=== PATIENT | female | born 1990 | race Caucasian/White ===

== ENCOUNTER 2021-06-04 06:05 | Day surgery (SDC) | payer OTHER ==
[2021-06-04] MEDS ORDERED: Lactated Ringers 1,000 ML IV SCH (06:30)
[2021-06-04] MEDS ORDERED: VIBRAMYCIN 100 MG*** 100 MG in Dextrose 5%/Water IV Soln. 100ML PLUS BAG 100 ML IV ONE (07:30)
[2021-06-04] MEDS ORDERED: DIPRIVAN 200 MG/20 ML IV ONE (07:44)
[2021-06-04] MEDS ORDERED: Versed 2 MG/2 ML Injection ONE (07:44)
[2021-06-04] MEDS ORDERED: ATROPINE SULFATE 1MG ONE (07:48)
[2021-06-04] MEDS ORDERED: Quelicin Fliptop 200 MG/10 ML ONE (07:48)
[2021-06-04] MEDS ORDERED: SUBLIMAZE 100 MCG/2 ML ONE ×2 (08:20→08:51)
[2021-06-04 09:41] VITALS: BP 150/95; PULSE 81; O2SAT 97
--- NOTE | 2021-06-05 07:43 | OP ---
SURGERY DATE/TIME: 06/04/2021 0807 PREOPERATIVE DIAGNOSIS: Menorrhagia, declines medical management. POSTOPERATIVE DIAGNOSIS: Menorrhagia, declines medical management. PROCEDURE: Hysteroscopy, D&C with NovaSure ablation. SURGEON: Noel Sigala D.O. ASSOCIATE DIRECTOR OF SALES: Cristhian Alcantara surgical instrument repair specialist. ANESTHESIA: General. ESTIMATED BLOOD LOSS: Minimal. COMPLICATIONS: None. INDICATIONS: The risks, benefits, indications and alternatives of the procedure were reviewed with the patient prior to the procedure. The patient understood the risk of infection, bleeding, bowel injury, bladder injury, ureteral injury, uterine perforation, pelvic infection, thromboembolic disorder associated with this surgery and desires to have this surgery as a possible means to alleviate her current medical condition. DESCRIPTION OF PROCEDURE AND FINDINGS: At this point the patient is taken to the operating room, given general sedation, placed in dorsal lithotomy position, prepped and draped in the usual sterile fashion. A weighted speculum is then placed in the patient's vagina and the anterior lip of the cervix is grasped with a single tooth tenaculum. Endocervical dilators were advanced through the endocervical canal as a means to dilate the cervix and the uterus was sounded to approximately 8 to 9 cm. From this point, a 5 mm hysteroscope was then placed in through the endocervical canal where visualization of endometrial cavity appeared to be within normal limits with no gross abnormalities. From this point the hysteroscope was then removed and the curette was then placed into the fundus of the uterus and curettage is performed in all quadrants of the uterus retrieving a moderate amount of endometrial tissue. From this point hemostasis obtained. At this point the NovaSure instrument was then placed into the fundus of the uterus retracted approximately 1 cm and was a length 6.0 cm and the width of 4.5 cm. The machine was turned on for an ablative time of 49 seconds. At the completion of the ablation the instrument was disengaged from the uterine cavity, removed as well as all of the instruments were removed from the patient's vaginal region as well. The patient was then taken out of dorsal lithotomy position, was taken out of anesthesia and was then taken to the recovery room in stable condition. All instruments and laps were accounted for x2.
== END 2021-06-04 09:50 | disposition home or self-care (01) ==
LOC: SDC 06:05
PROVIDERS: ATTEND Obstetrics & Gynecology
DX: N92.0 Excessive and frequent menstruation with regular cycle (principal)
CPT/HCPCS: 84703; J0330; J0461; J2250; J2704; J3010

== ENCOUNTER 2022-11-11 07:48 | Observation (INO) | payer OTHER ==
[~2022-11-11 07:48] MED LIST: Transderm Scop 1.5MG Patch TOP PRN; Versed 2 MG/2 ML Injection IV PRN
[2022-11-11] MEDS ORDERED: Lactated Ringers 1,000 ML IV SCH (08:00)
[2022-11-11] MEDS ORDERED: CLINDAMYCIN-D5W 900 MG/50 ML*** 900 MG/50 ML BAG IV SCH (08:00)
[2022-11-11 08:16] LABS: Hematocrit 44.2 % (35-47); Hemoglobin 14.1 g/dL (12.0-16.0); Mean Cell Volume 91.1 fL (78-100); Mean Corpuscular Hemoglobin 29.1 pg (26-32); Mean Corpuscular Hgb Concent. 31.9 g/dL (32-36); Platelet Count 230 x10^3/uL (150-450); Red Blood Count 4.85 x10^6/uL (4.1-5.4); Red Cell Distribution Width 13.5 % (11.5-14.0); White Blood Count 6.7 x10^3/uL (4.0-10.5)
[2022-11-11 08:29] LABS: ALBUMIN 3.8 g/dL (3.5-5.0); ALKALINE PHOSPHATASE 71 U/L (38-126); ANION GAP 10.6 MEQ/L (5-15); BLOOD UREA NITROGEN 11 mg/dL (7-17); CHLORIDE 105 mmol/L (98-107); Calcium 8.4 mg/dL (8.4-10.2); Carbon Dioxide 26 mmol/L (22-30); Creatinine 1 0.71 mg/dL (0.52-1.04); EST GLOMERULAR FILTRATION RATE > 60.0 ML/MIN; Glucose 98 mg/dL (74-106); Potassium 3.7 mmol/L (3.5-5.1); SGOT/AST 28 U/L (14-36); SGPT/ALT 26 U/L (0-35); SODIUM 138 mmol/L (137-145)
[2022-11-11] MEDS ORDERED: Astramorph-Pf 5 MG/10 ML ONE (08:31)
[2022-11-11] MEDS ORDERED: SUBLIMAZE 100 MCG/2 ML ONE (08:32)
[2022-11-11] MEDS ORDERED: Zemuron 100 MG/10 ML ONE (08:32)
[2022-11-11] MEDS ORDERED: DIPRIVAN 200 MG/20 ML IV ONE (08:32)
[2022-11-11 08:52] LABS: INFLUENZA A NEGATIVE (NEGATIVE); INFLUENZA B NEGATIVE (NEGATIVE); RESPIRATORY SYNCTIAL VIRUS NEGATIVE (Negative); SARS-CoV-2 Xpert Express NEGATIVE (NEGATIVE)
[2022-11-11 09:07] LABS: ABO TYPING O; Antibody Screen NEGATIVE (NEGATIVE); RH TYPING NEGATIVE
[2022-11-11] MEDS ORDERED: Lactated Ringers 1,000 ML IV ONE (09:27)
[2022-11-11] MEDS ORDERED: BRIDION 200MG/2ML IV ONE (09:44)
[2022-11-11] MEDS ORDERED: Zofran 4 MG/2 ML VIAL ONE (09:44)
[2022-11-11] MEDS ORDERED: Marcaine 0.5%/Epinephrine 10 ML ONE (09:45)
[2022-11-11] MEDS ORDERED: Decadron 4 MG INJ ONE (09:46)
[2022-11-11] MEDS ORDERED: TORAdol 30 mg Injection ONE (10:05)
[2022-11-11 10:36] LABS: Bacteria RARE /HPF (NEGATIVE); Mucus MODERATE /HPF (NEGATIVE)
[2022-11-11 10:37] LABS: Appearance CLEAR (CLEAR); Bilirubin NEGATIVE (NEGATIVE); Dipstick done @ ? MAIN LAB; Glucose NEGATIVE (NEGATIVE); Ketones NEGATIVE (NEGATIVE); Nitrite NEGATIVE (NEGATIVE); Protein,Urine Dip NEGATIVE (Negative); RBC NEGATIVE Ery/ul (0-5); Specific Gravity >=1.030 (1.005-1.025); Urobilinogen 0.2 mg/dL (0-1)
[2022-11-11] MEDS ORDERED: Zofran 4 MG/2 ML VIAL IV PRN ×2 (11:28→11:45)
[2022-11-11] MEDS ORDERED: TORAdol 30 mg Injection IV PRN (11:31)
[2022-11-11] MEDS ORDERED: clonazePAM PO PRN (11:39)
[2022-11-11] MEDS ORDERED: Sodium Chloride 0.9% 10 ML FLUSH Syringe IJ PRN (11:45)
[2022-11-11] MEDS ORDERED: CLARITIN 10 MG PO PRN (11:45)
[2022-11-11] MEDS ORDERED: Narcan 0.4 MG/ML IV PRN (11:45)
[2022-11-11] MEDS ORDERED: DEMEROL 50 MG IV PRN (11:45)
[2022-11-11] MEDS ORDERED: BENADRYL 50 MG/ML IV PRN (11:45)
[2022-11-11] MEDS ORDERED: Nubain 10 MG/ML IV PRN (11:45)
[2022-11-11] MEDS: MORPHINE SULFATE 2 MG INJ IV PRN ×2 (12:14→14:08)
[2022-11-11] MEDS: Docusate Sodium 100 MG PO SCH ×2 (12:17→23:14)
[2022-11-11] MEDS: Effexor XR 75 MG PO SCH (12:17)
[2022-11-11] MEDS: Lactated Ringers 1,000 ML IV SCH ×2 (12:19→23:14)
[2022-11-11] MEDS: PERCOCET TABLET 5/325MG PO PRN ×3 (12:43→23:15)
[2022-11-11] MEDS: CLINDAMYCIN-D5W 900 MG/50 ML*** 900 MG/50 ML BAG IV SCH ×2 (14:07→23:14)
[2022-11-11] MEDS: Reglan 10 MG/2 ML IV SCH ×2 (14:07→23:15)
[2022-11-11] MEDS: Mylicon 80MG PO SCH ×2 (14:07→23:15)
[2022-11-11 18:30] LABS: Hematocrit 44.7 % (35-47); Hemoglobin 14.3 g/dL (12.0-16.0); Mean Cell Volume 90.7 fL (78-100); Platelet Count 239 x10^3/uL (150-450); Red Blood Count 4.93 x10^6/uL (4.1-5.4); Red Cell Distribution Width 13.3 % (11.5-14.0); White Blood Count 17.5 x10^3/uL (4.0-10.5)
[2022-11-12 04:57] VITALS: O2SAT 97
[2022-11-12 05:34] LABS: Hematocrit 43.4 % (35-47); Hemoglobin 13.7 g/dL (12.0-16.0); Mean Cell Volume 93.5 fL (78-100); Mean Corpuscular Hemoglobin 29.5 pg (26-32); Mean Corpuscular Hgb Concent. 31.6 g/dL (32-36); Mean Platelet Volume 10.6 fL (7.5-11.0); Platelet Count 217 x10^3/uL (150-450); Red Blood Count 4.64 x10^6/uL (4.1-5.4)
[2022-11-12] MEDS: Reglan 10 MG/2 ML IV SCH (05:55)
[2022-11-12] MEDS: PERCOCET TABLET 5/325MG PO PRN (05:56)
[2022-11-12] MEDS: Mylicon 80MG PO SCH (05:56)
[2022-11-12] MEDS: Lactated Ringers 1,000 ML IV SCH (06:02)
[2022-11-12 06:45] LABS: ALBUMIN 3.4 g/dL (3.5-5.0); ALKALINE PHOSPHATASE 68 U/L (38-126); ANION GAP 6.7 MEQ/L (5-15); BLOOD UREA NITROGEN 9 mg/dL (7-17); CHLORIDE 108 mmol/L (98-107); Calcium 8.8 mg/dL (8.4-10.2); Carbon Dioxide 26 mmol/L (22-30); Creatinine 1 0.55 mg/dL (0.52-1.04); EST GLOMERULAR FILTRATION RATE > 60.0 ML/MIN; Glucose 121 mg/dL (74-106); Potassium 4.1 mmol/L (3.5-5.1); SGOT/AST 44 U/L (14-36); SGPT/ALT 32 U/L (0-35); SODIUM 137 mmol/L (137-145); Total Protein 6.5 g/dL (6.3-8.2)
[2022-11-12 07:38] VITALS: BP 117/67; PULSE 65
--- NOTE | 2022-11-12 07:59 | PCM.NOTE ---
Date and Time: 11/12/22 0756 Subjective Assessment: pod 1 pt resting in bed and doing well. ambulating and tolerating diet. vss afebrile abd; soft incision with dressing intact with minimal soiling ext; no clubbing cyanosis or edema hgb; 13.7 a/p sp laparotomy supracervical hysterectomy pod 1 stable for discharge today will send home on cipro bid 5 days will send home on weekly diflucan for 4 wks for skin candidiasis OBJECTIVE DATA Vital Signs: Vital Signs - 24 hr Temp Pulse Resp BP Pulse Ox 11/12/22 07:37 97.5 F 65 16 117/67 97 11/12/22 04:00 97.3 F 60 16 136/68 97 11/11/22 23:48 97.0 F 57 L 18 111/61 96 11/11/22 20:00 97 F 68 18 108/63 96 11/11/22 19:08 97 11/11/22 16:00 97.8 F 64 16 116/65 92 L 11/11/22 12:45 97.9 F 74 16 143/98 94 L 11/11/22 12:00 97.9 F 74 16 143/98 94 L 11/11/22 11:35 96 11/11/22 11:30 97.6 F 70 16 116/74 91 L 11/11/22 11:15 97.2 F 63 16 131/82 94 L 11/11/22 08:25 98 F 70 18 122/86 96 11/11/22 08:07 98 F 70 18 122/86 96 Pain Assessment - Last Documented Pain Intensity 2 Pain Scale Used 0-10 Pain Scale Intake and Output: Intake & Output 11/09/22 11/10/22 11/11/22 11/12/22 11:59 11:59 11:59 11:59 Intake Total 1451 Output Total 2200 Balance -749 Weight 116 kg 116 kg Lab Results: Lab Results-Last 24 Hours 11/11/22 11/11/22 11/11/22 Range/Units 08:04 08:08 08:08 WBC 6.7 (4.0-10.5) x10^3/uL RBC 4.85 (4.1-5.4) x10^6/uL Hgb 14.1 (12.0-16.0) g/dL Hct 44.2 (35-47) % MCV 91.1 (78-100) fL MCH 29.1 (26-32) pg MCHC 31.9 L (32-36) g/dL RDW 13.5 (11.5-14.0) % Plt Count 230 (150-450) x10^3/uL MPV 10.0 (7.5-11.0) fL Sodium 138 (137-145) mmol/L Potassium 3.7 (3.5-5.1) mmol/L Chloride 105 (98-107) mmol/L Carbon Dioxide 26 (22-30) mmol/L Anion Gap 10.6 (5-15) MEQ/L BUN 11 (7-17) mg/dL Creatinine 0.71 (0.52-1.04) mg/dL Estimated GFR > 60.0 ML/MIN Glucose 98 (74-106) mg/dL Calcium 8.4 (8.4-10.2) mg/dL Total Bilirubin 0.50 (0.2-1.3) mg/dL AST 28 (14-36) U/L ALT 26 (0-35) U/L Alkaline Phosphatase 71 (38-126) U/L Serum Total Protein 7.0 (6.3-8.2) g/dL Albumin 3.8 (3.5-5.0) g/dL Urinalys Dipstick Clnc Urine Color (YELLOW) Urine Appearance (CLEAR) Urine pH (5-6) Ur Specific Almo (1.005-1.025) POC Urine Protein Conf (Negative) Urine Ketones (NEGATIVE) Urine Nitrite (NEGATIVE) Urine Bilirubin (NEGATIVE) Urine Urobilinogen (0-1) mg/dL Urine Leukocytes (NEGATIVE) Urine WBC (Auto) (0-5) /HPF Urine RBC (Auto) (0-2) /HPF U Epithel Cells (Auto) (FEW) /HPF Urine Bacteria (Auto) (NEGATIVE) /HPF Urine RBC (0-5) Bhanu/ul Urine Mucus (Auto) (NEGATIVE) /HPF Urine Glucose (NEGATIVE) mg/dL Urine HCG, Qual NEGATIVE (Negative) Influenza Type A Ag (NEGATIVE) Influenza Type B Ag (NEGATIVE) RSV (PCR) (Negative) SARS-CoV-2 (PCR) (NEGATIVE) ABO Group Rh Factor Antibody Screen (NEGATIVE) 11/11/22 11/11/22 11/11/22 Range/Units 08:08 08:08 08:59 WBC (4.0-10.5) x10^3/uL RBC (4.1-5.4) x10^6/uL Hgb (12.0-16.0) g/dL Hct (35-47) % MCV (78-100) fL MCH (26-32) pg MCHC (32-36) g/dL RDW (11.5-14.0) % Plt Count (150-450) x10^3/uL MPV (7.5-11.0) fL Sodium (137-145) mmol/L Potassium (3.5-5.1) mmol/L Chloride (98-107) mmol/L Carbon Dioxide (22-30) mmol/L Anion Gap (5-15) MEQ/L BUN (7-17) mg/dL Creatinine (0.52-1.04) mg/dL Estimated GFR ML/MIN Glucose (74-106) mg/dL Calcium (8.4-10.2) mg/dL Total Bilirubin (0.2-1.3) mg/dL AST (14-36) U/L ALT (0-35) U/L Alkaline Phosphatase (38-126) U/L Serum Total Protein (6.3-8.2) g/dL Albumin (3.5-5.0) g/dL Urinalys Dipstick Clnc MAIN LAB Urine Color YELLOW (YELLOW) Urine Appearance CLEAR (CLEAR) Urine pH 6.0 (5-6) Ur Specific Almo >=1.030 A (1.005-1.025) POC Urine Protein Conf NEGATIVE (Negative) Urine Ketones NEGATIVE (NEGATIVE) Urine Nitrite NEGATIVE (NEGATIVE) Urine Bilirubin NEGATIVE (NEGATIVE) Urine Urobilinogen 0.2 (0-1) mg/dL Urine Leukocytes NEGATIVE (NEGATIVE) Urine WBC (Auto) NONE (0-5) /HPF Urine RBC (Auto) NONE (0-2) /HPF U Epithel Cells (Auto) NONE (FEW) /HPF Urine Bacteria (Auto) RARE (NEGATIVE) /HPF Urine RBC NEGATIVE (0-5) Bhanu/ul Urine Mucus (Auto) MODERATE A (NEGATIVE) /HPF Urine Glucose NEGATIVE (NEGATIVE) mg/dL Urine HCG, Qual (Negative) Influenza Type A Ag NEGATIVE (NEGATIVE) Influenza Type B Ag NEGATIVE (NEGATIVE) RSV (PCR) NEGATIVE (Negative) SARS-CoV-2 (PCR) NEGATIVE (NEGATIVE) ABO Group O Rh Factor NEGATIVE Antibody Screen NEGATIVE (NEGATIVE) 11/11/22 11/12/22 11/12/22 Range/Units 18:29 05:22 05:22 WBC 17.5 H 18.0 H (4.0-10.5) x10^3/uL RBC 4.93 4.64 (4.1-5.4) x10^6/uL Hgb 14.3 13.7 (12.0-16.0) g/dL Hct 44.7 43.4 (35-47) % MCV 90.7 93.5 (78-100) fL MCH 29.0 29.5 (26-32) pg MCHC 32.0 31.6 L (32-36) g/dL RDW 13.3 14.0 (11.5-14.0) % Plt Count 239 217 (150-450) x10^3/uL MPV 10.0 10.6 (7.5-11.0) fL Sodium 137 (137-145) mmol/L Potassium 4.1 (3.5-5.1) mmol/L Chloride 108 H (98-107) mmol/L Carbon Dioxide 26 (22-30) mmol/L Anion Gap 6.7 (5-15) MEQ/L BUN 9 (7-17) mg/dL Creatinine 0.55 (0.52-1.04) mg/dL Estimated GFR > 60.0 ML/MIN Glucose 121 H (74-106) mg/dL Calcium 8.8 (8.4-10.2) mg/dL Total Bilirubin 0.30 (0.2-1.3) mg/dL AST 44 H (14-36) U/L ALT 32 (0-35) U/L Alkaline Phosphatase 68 (38-126) U/L Serum Total Protein 6.5 (6.3-8.2) g/dL Albumin 3.4 L (3.5-5.0) g/dL Urinalys Dipstick Clnc Urine Color (YELLOW) Urine Appearance (CLEAR) Urine pH (5-6) Ur Specific Almo (1.005-1.025) POC Urine Protein Conf (Negative) Urine Ketones (NEGATIVE) Urine Nitrite (NEGATIVE) Urine Bilirubin (NEGATIVE) Urine Urobilinogen (0-1) mg/dL Urine Leukocytes (NEGATIVE) Urine WBC (Auto) (0-5) /HPF Urine RBC (Auto) (0-2) /HPF U Epithel Cells (Auto) (FEW) /HPF Urine Bacteria (Auto) (NEGATIVE) /HPF Urine RBC (0-5) Bhanu/ul Urine Mucus (Auto) (NEGATIVE) /HPF Urine Glucose (NEGATIVE) mg/dL Urine HCG, Qual (Negative) Influenza Type A Ag (NEGATIVE) Influenza Type B Ag (NEGATIVE) RSV (PCR) (Negative) SARS-CoV-2 (PCR) (NEGATIVE) ABO Group Rh Factor Antibody Screen (NEGATIVE) Assessment/Plan (1) Vulvar candidiasis Current Visit: Yes Status: Acute Code(s): B37.31 - ACUTE CANDIDIASIS OF VULVA AND VAGINA (2) S/P abdominal supracervical subtotal hysterectomy Current Visit: Yes Status: Acute Code(s): Z90.711 - ACQUIRED ABSENCE OF UTERUS WITH REMAINING CERVICAL STUMP
--- NOTE | 2022-11-12 08:04 | PCM.DS ---
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 during postop period did well able to ambulate and tolerate diet. pt noted prior to surgery having rash from vulva extending to upper thigh bilaterally. pt will be given weekly diflucan for 4 wks and cipro bid 5 days as well as norco for pain management. all questions answered to her satisfaction and at this time stable for discharge. stable hgb at 13.7. advised to fu in office in 1 wk - Vitals & Intake/Output Vital Signs: Vital Signs Temperature 97.5 F 11/12/22 07:37 Pulse Rate 65 11/12/22 07:37 Respiratory Rate 16 11/12/22 07:37 Blood Pressure 117/67 11/12/22 07:37 O2 Sat by Pulse Oximetry 97 11/12/22 07:37 Intake & Output: Intake & Output 11/09/22 11/10/22 11/11/22 11/12/22 11:59 11:59 11:59 11:59 Intake Total 1451 Output Total 2200 Balance -749 Weight 116 kg 116 kg - Lab Result Diagrams: 11/12/22 05:22 11/12/22 05:22 Lab Results-Last 24 Hrs: Lab Results-Last 24 Hours 11/11/22 11/11/22 11/11/22 Range/Units 08:04 08:08 08:08 WBC 6.7 (4.0-10.5) x10^3/uL RBC 4.85 (4.1-5.4) x10^6/uL Hgb 14.1 (12.0-16.0) g/dL Hct 44.2 (35-47) % MCV 91.1 (78-100) fL MCH 29.1 (26-32) pg MCHC 31.9 L (32-36) g/dL RDW 13.5 (11.5-14.0) % Plt Count 230 (150-450) x10^3/uL MPV 10.0 (7.5-11.0) fL Sodium 138 (137-145) mmol/L Potassium 3.7 (3.5-5.1) mmol/L Chloride 105 (98-107) mmol/L Carbon Dioxide 26 (22-30) mmol/L Anion Gap 10.6 (5-15) MEQ/L BUN 11 (7-17) mg/dL Creatinine 0.71 (0.52-1.04) mg/dL Estimated GFR > 60.0 ML/MIN Glucose 98 (74-106) mg/dL Calcium 8.4 (8.4-10.2) mg/dL Total Bilirubin 0.50 (0.2-1.3) mg/dL AST 28 (14-36) U/L ALT 26 (0-35) U/L Alkaline Phosphatase 71 (38-126) U/L Serum Total Protein 7.0 (6.3-8.2) g/dL Albumin 3.8 (3.5-5.0) g/dL Urinalys Dipstick Clnc Urine Color (YELLOW) Urine Appearance (CLEAR) Urine pH (5-6) Ur Specific Caroline (1.005-1.025) POC Urine Protein Conf (Negative) Urine Ketones (NEGATIVE) Urine Nitrite (NEGATIVE) Urine Bilirubin (NEGATIVE) Urine Urobilinogen (0-1) mg/dL Urine Leukocytes (NEGATIVE) Urine WBC (Auto) (0-5) /HPF Urine RBC (Auto) (0-2) /HPF U Epithel Cells (Auto) (FEW) /HPF Urine Bacteria (Auto) (NEGATIVE) /HPF Urine RBC (0-5) Bhanu/ul Urine Mucus (Auto) (NEGATIVE) /HPF Urine Glucose (NEGATIVE) mg/dL Urine HCG, Qual NEGATIVE (Negative) Influenza Type A Ag (NEGATIVE) Influenza Type B Ag (NEGATIVE) RSV (PCR) (Negative) SARS-CoV-2 (PCR) (NEGATIVE) ABO Group Rh Factor Antibody Screen (NEGATIVE) 11/11/22 11/11/22 11/11/22 Range/Units 08:08 08:08 08:59 WBC (4.0-10.5) x10^3/uL RBC (4.1-5.4) x10^6/uL Hgb (12.0-16.0) g/dL Hct (35-47) % MCV (78-100) fL MCH (26-32) pg MCHC (32-36) g/dL RDW (11.5-14.0) % Plt Count (150-450) x10^3/uL MPV (7.5-11.0) fL Sodium (137-145) mmol/L Potassium (3.5-5.1) mmol/L Chloride (98-107) mmol/L Carbon Dioxide (22-30) mmol/L Anion Gap (5-15) MEQ/L BUN (7-17) mg/dL Creatinine (0.52-1.04) mg/dL Estimated GFR ML/MIN Glucose (74-106) mg/dL Calcium (8.4-10.2) mg/dL Total Bilirubin (0.2-1.3) mg/dL AST (14-36) U/L ALT (0-35) U/L Alkaline Phosphatase (38-126) U/L Serum Total Protein (6.3-8.2) g/dL Albumin (3.5-5.0) g/dL Urinalys Dipstick Clnc MAIN LAB Urine Color YELLOW (YELLOW) Urine Appearance CLEAR (CLEAR) Urine pH 6.0 (5-6) Ur Specific Caroline >=1.030 A (1.005-1.025) POC Urine Protein Conf NEGATIVE (Negative) Urine Ketones NEGATIVE (NEGATIVE) Urine Nitrite NEGATIVE (NEGATIVE) Urine Bilirubin NEGATIVE (NEGATIVE) Urine Urobilinogen 0.2 (0-1) mg/dL Urine Leukocytes NEGATIVE (NEGATIVE) Urine WBC (Auto) NONE (0-5) /HPF Urine RBC (Auto) NONE (0-2) /HPF U Epithel Cells (Auto) NONE (FEW) /HPF Urine Bacteria (Auto) RARE (NEGATIVE) /HPF Urine RBC NEGATIVE (0-5) Bhanu/ul Urine Mucus (Auto) MODERATE A (NEGATIVE) /HPF Urine Glucose NEGATIVE (NEGATIVE) mg/dL Urine HCG, Qual (Negative) Influenza Type A Ag NEGATIVE (NEGATIVE) Influenza Type B Ag NEGATIVE (NEGATIVE) RSV (PCR) NEGATIVE (Negative) SARS-CoV-2 (PCR) NEGATIVE (NEGATIVE) ABO Group O Rh Factor NEGATIVE Antibody Screen NEGATIVE (NEGATIVE) 11/11/22 11/12/22 11/12/22 Range/Units 18:29 05:22 05:22 WBC 17.5 H 18.0 H (4.0-10.5) x10^3/uL RBC 4.93 4.64 (4.1-5.4) x10^6/uL Hgb 14.3 13.7 (12.0-16.0) g/dL Hct 44.7 43.4 (35-47) % MCV 90.7 93.5 (78-100) fL MCH 29.0 29.5 (26-32) pg MCHC 32.0 31.6 L (32-36) g/dL RDW 13.3 14.0 (11.5-14.0) % Plt Count 239 217 (150-450) x10^3/uL MPV 10.0 10.6 (7.5-11.0) fL Sodium 137 (137-145) mmol/L Potassium 4.1 (3.5-5.1) mmol/L Chloride 108 H (98-107) mmol/L Carbon Dioxide 26 (22-30) mmol/L Anion Gap 6.7 (5-15) MEQ/L BUN 9 (7-17) mg/dL Creatinine 0.55 (0.52-1.04) mg/dL Estimated GFR > 60.0 ML/MIN Glucose 121 H (74-106) mg/dL Calcium 8.8 (8.4-10.2) mg/dL Total Bilirubin 0.30 (0.2-1.3) mg/dL AST 44 H (14-36) U/L ALT 32 (0-35) U/L Alkaline Phosphatase 68 (38-126) U/L Serum Total Protein 6.5 (6.3-8.2) g/dL Albumin 3.4 L (3.5-5.0) g/dL Urinalys Dipstick Clnc Urine Color (YELLOW) Urine Appearance (CLEAR) Urine pH (5-6) Ur Specific Caroline (1.005-1.025) POC Urine Protein Conf (Negative) Urine Ketones (NEGATIVE) Urine Nitrite (NEGATIVE) Urine Bilirubin (NEGATIVE) Urine Urobilinogen (0-1) mg/dL Urine Leukocytes (NEGATIVE) Urine WBC (Auto) (0-5) /HPF Urine RBC (Auto) (0-2) /HPF U Epithel Cells (Auto) (FEW) /HPF Urine Bacteria (Auto) (NEGATIVE) /HPF Urine RBC (0-5) Bhanu/ul Urine Mucus (Auto) (NEGATIVE) /HPF Urine Glucose (NEGATIVE) mg/dL Urine HCG, Qual (Negative) Influenza Type A Ag (NEGATIVE) Influenza Type B Ag (NEGATIVE) RSV (PCR) (Negative) SARS-CoV-2 (PCR) (NEGATIVE) ABO Group Rh Factor Antibody Screen (NEGATIVE) - Procedures and Test Procedures and Tests throughout Hospitalization: Therapy Orders & Screens 11/11/22 11:10 Oxygen Oxymask LPM 3 lpm Comment: 3L/nc to keep sats >93% Diagnosis: s/p supracervical hysterectomy 11/11/22 11:35 Incentive Spirometry UD Comment: Diagnosis: s/p supracervical hysterectomy Final Diagnosis/Problem List - Final Discharge Diagnosis/Problem (1) Vulvar candidiasis Current Visit: Yes Status: Acute Code(s): B37.31 - ACUTE CANDIDIASIS OF VULVA AND VAGINA (2) S/P abdominal supracervical subtotal hysterectomy Current Visit: Yes Status: Acute Code(s): Z90.711 - ACQUIRED ABSENCE OF UTERUS WITH REMAINING CERVICAL STUMP - Discharge Disposition: Home, Self-Care Condition: Stable Prescriptions: New Ciprofloxacin [Cipro 500 MG] 500 mg PO BID #10 tablet Fluconazole 150 mg PO WEEKLY #4 tablet Hydrocodone/Acetaminophen [Hydrocodone-Acetamin 5-325 mg] 1 tab PO Q6HPRN PRN #20 tablet MDD 4 PRN Reason: Pain No Action clonazePAM [Klonopin] 0.5 mg PO TID PRN PRN PRN Reason: Anxiety Venlafaxine HCl [Effexor Xr] 225 mg PO DAILY Instructions: Hysterectomy, Abdominal or Laparoscopic Surgery Follow up with: DIMAS SHAVER [Primary Care Provider] - MENDEZ BYRNES DO [ACTIVE STAFF] - 1 Week (keep incision clean and dry will remove dressing in office next thursday)
[2022-11-12] MEDS: Effexor XR 75 MG PO SCH (08:13)
[2022-11-12] MEDS: Docusate Sodium 100 MG PO SCH (08:13)
--- NOTE | 2022-11-12 08:14 | OP ---
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 PROCEDURE: Laparotomy supracervical hysterectomy. SURGEON: Noel Sigala D.O. SURGICAL SERVICES MANAGER: Marli Link, surgical supply assistant. ANESTHESIA: General. ESTIMATED BLOOD LOSS: 50 cc. COMPLICATIONS: None. INDICATIONS: The risks, benefits, indications and alternatives of the procedure were reviewed with the patient prior to the procedure. The patient understood the risk of infection, bleeding, bowel injury, bladder injury, ureteral injury, uterine perforation, pelvic infection and thromboembolic disorder associated with this surgery and desires to have this surgery as a possible means to alleviate her current medical condition. DESCRIPTION OF PROCEDURE AND FINDINGS: At this point the patient is taken to the operating room given general sedation, placed in the supine position where she was given general anesthesia. She was prepared and draped in the usual sterile fashion. A Pfannenstiel incision was made approximately 2 cm above the symphysis pubis and extended sharply through the rectus fascia. The fascia was then incised bilaterally with curved Stanley scissors and the muscles of the anterior abdominal wall in the midline by sharp and blunt dissection. The peritoneum was then grasped between two pickups elevated and entered sharply with Metzenbaum scissors. The pelvis is then examined and was noted to have approximately 10 weeks size uterus. An O'Juvencio-O'Aparicio retractor was placed into the incision and the bowel packed away with moist laparotomy sponges. A tenaculum is then placed on the fundus of the uterus and was used to elevate the uterus where at this time the LigaSure was used and was brought over the left utero-ovarian ligament where it was clamped, coagulated and cut taken down to the round ligament where it to was clamped, coagulated and cut towards the uterine vasculature where it was dissected and the bladder was then gently dissected off of the lower uterine segment and cervix with a sponge stick. The uterine artery on the left side was skeletonized, was clamped with Dora clamps transected and suture ligated with 0 Vicryl suture and hemostasis was obtained. The same procedure was performed on the right side where the right utero-ovarian ligament was clamped, coagulated and cut taken down to the round ligament towards the vasculature where it to was dissected, skeletonized and where the uterine vessel was then clamped with Dora clamp transected, suture ligated with 0 Vicryl suture on its side and the bladder was gently dissected off the lower uterine segment on its side with a sponge stick. From this point cautery was used to amputate the uterus from its cervical region and was done so without complication. Hemostasis was obtained by placing 0 Vicryl suture over the amputated region of the cervix. From this point, the bilateral ovaries appeared to be within normal limits and were not removed during the procedure. At this point the pelvis is then irrigated copiously with warm normal saline. All operative sponges and instruments were removed from the patient's abdomen. From this point the fascia was then closed with a running 0 Vicryl suture. Hemostasis was assured. The subcutaneous layer was closed with 3-0 Vicryl suture and the skin was closed with absorbable juan r called INSORB. Sponge, lap, needle and instruments counts were correct x2. The patient was then taken out of anesthesia and was then taken to the recovery room in stable condition. All instruments and laps were accounted for x2.
[2022-11-12] MEDS ORDERED: ENOXAPARIN SODIUM SQ SCH (09:00)
[2022-11-12] MEDS ORDERED: HOLD NARCOTIC ANALGESICS AND SEDATIVES X24 HR MC SCH (10:00)
== END 2022-11-12 08:38 | disposition home or self-care (01) ==
LOC: MED SURG 07:48
PROVIDERS: ADMIT Obstetrics & Gynecology; ATTEND Obstetrics & Gynecology
DX: B37.31 Acute candidiasis of vulva and vagina (principal); N93.9 Abnormal uterine and vaginal bleeding, unspecified; N99.85 Post endometrial ablation syndrome; Z20.828 Contact with and (suspected) exposure to other viral communicable diseases
CPT/HCPCS: 0241U; 36415; 58180; 64488; 76937; 80053; 81001; 81025; 85027; 86850; 86900; 86901; 87086; 94760; 62322; 76942; G0378; J1100; J1650; J1885; J2250; J2270; J2274; J2405; J2704; J3010; A9270-GY